=== PATIENT | male | born 1935 | race Caucasian/White ===

== ENCOUNTER 2018-09-17 17:06 | Inpatient (IN) | payer MEDICARE, OTHER ==
[2018-09-17] MEDS ORDERED: Sodium Chloride 0.9% 10 ML Syringe FLUSH PRN (18:15)
[2018-09-17] MEDS ORDERED: Lactated Ringers 1,000 ML IV SCH (18:15)
[2018-09-17] MEDS ORDERED: Ondansetron 4 MG/2 ML SDV IVPUSH ONE (18:18)
[2018-09-17] MEDS ORDERED: fentaNYL 100 MCG/2 ML SDV IVPUSH ONE (18:18)
--- NOTE | 2018-09-17 18:25 | EDM.PDOC ---
ED HPI GENERAL MEDICAL PROBLEM - General Chief Complaint: Abdominal Pain Stated Complaint: ILLNESS Time Seen by Provider: 09/17/18 18:07 Source of Information: Reports: Patient, Family, RN Notes Reviewed History Limitations: Reports: No Limitations - History of Present Illness INITIAL COMMENTS - FREE TEXT/NARRATIVE: 82-year-old gentleman presents emergency department day complaint of right upper quadrant epigastric pain, he has a known history of esophageal cancer he recently spent approximately 2-1/2 months at the [facility] for treatment of his esophageal cancer which included radiation and chemotherapy, he is completed the course of both and he is waiting for his one-month follow- up for determining outcome. He states the pain started at 12:30 this morning sharp and stabbing goes through to his back will come and go about every 2-3 minutes when the pain is most intense he has difficulty breathing. Right Upper Abdominal Pain Score (Numeric/FACES): 10 - Related Data Allergies Allergy/AdvReac Type Severity Reaction Status Date / Time No Known Allergies Allergy Verified 04/06/16 14:42 Home Meds: Home Meds Doxazosin Mesylate [Cardura] 2 mg PO DAILY 10/21/14 [History] Lutein/Min/Vit C/Vit E Acetate [Ocuvite Lutein] 1 cap PO DAILY 10/21/14 [History ] Multivitamin with Minerals [Multiple Vitamin] 1 tab PO DAILY 02/04/16 [History] Pravastatin [Pravachol] 20 mg PO BEDTIME 02/04/16 [History] Enoxaparin [Lovenox] 80 mg SQ Q12HR 09/17/18 [History] Hydrocodone/Acetaminophen [Hydrocodon-Acetaminophen 5-325] 1 tab PO Q6H PRN [History] Isosorbide Mononitrate [Imdur] 30 mg PO DAILY 09/17/18 [History] Metoprolol Tartrate 50 mg PO DAILY 09/17/18 [History] Omeprazole 20 mg PO BID 09/17/18 [History] Ondansetron HCl [Zofran] 4 mg PO Q8H PRN 09/17/18 [History] Prochlorperazine [Compazine] 10 mg PO Q6H PRN 09/17/18 [History] Vancomycin 1 tab PO QID 09/17/18 [History] Past Medical History HEENT History: Reports: Cataract, Macular Degeneration Cardiovascular History: Reports: High Cholesterol, Hypertension Gastrointestinal History: Reports: Other (See Below) Other Gastrointestinal History: ulcers Musculoskeletal History: Reports: Arthritis Neurological History: Reports: Concussion, Head Trauma Hematologic History: Reports: Blood Transfusion(s) Oncologic (Cancer) History: Reports: Esophageal Other Oncologic History: discharged yesterday from [facility] since Jun yesterday - Infectious Disease History Infectious Disease History: Reports: Chicken Pox, Shingles - Past Surgical History HEENT Surgical History: Reports: Cataract Surgery Neurological Surgical History: Reports: Other (See Below) Musculoskeletal Surgical History: Reports: None Social & Family History - Family History Family Medical History: Noncontributory - Tobacco Use Smoking Status *Q: Former Smoker Used Tobacco, but Quit: Yes Month/Year Tobacco Last Used: 40 - Caffeine Use Caffeine Use: Reports: None Other Caffeine Use: 1-2 cups a day - Recreational Drug Use Recreational Drug Use: No ED ROS GENERAL - Review of Systems Review Of Systems: See Below Constitutional: Denies: Fever, Chills HEENT: Reports: No Symptoms Respiratory: Reports: Shortness of Breath Cardiovascular: Reports: Chest Pain GI/Abdominal: Reports: Abdominal Pain, Diarrhea. Denies: Nausea, Vomiting : Reports: No Symptoms Musculoskeletal: Reports: No Symptoms Skin: Reports: No Symptoms Neurological: Reports: No Symptoms ED EXAM, GI/ABD - Physical Exam Exam: See Below Text/Narrative:: General: Male, not in any distress however when the pain calms he has difficulty breathing, alert and oriented x3 HEENT: head is atraumatic normocephalic, eyes pupils equal round reactive to light, sclera clear no conjunctivitis appreciated. Ears tympanic membranes clear and hayward landmarks and light reflex are present bilaterally canals are clear. Nose no septal deviation, nares are clear, no blood present. Mouth mucosa is moist and pink no erythema or exudate noted in soft palate, tongue is midline uvula is midline , dentition is intact. Neck: Supple no thyromegaly no tracheal deviation. Nodes: Cervical nodes subclavicular nodes nontender no palpable lymphadenopathy noted. Lungs: clear to auscultation bilaterally with symmetrical respirations, no adventitious noise appreciated. CV: Regular rate and rhythm S1 and S2 appreciated no murmurs rubs or gallops noted. Abdomen: Soft, tender right upper quadrant, no palpable masses or organomegaly appreciated, no distention no guarding bowel sounds are present,. Neuro: Cranial nerves II through XII intact, GCS 15 Skin: Warm and dry, intact Extremities: No lower extremity edema appreciated, Course - Vital Signs Last Recorded V/S: Last Vital Signs Temp 100.3 F 09/17/18 20:02 Pulse 135 H 09/17/18 22:21 Resp 21 H 09/17/18 22:21 BP 114/52 L 09/17/18 22:21 Pulse Ox 90 L 09/17/18 22:21 - Orders/Labs/Meds Orders: Active Orders 24 hr Category Date Time Status Peripheral IV Care [RC] . DIRECTED Care 09/17/18 18:16 Active CULTURE BLOOD [BC] Urgent Lab 09/17/18 20:25 Received CULTURE BLOOD [BC] Urgent Lab 09/17/18 20:35 Received CULTURE URINE [RM] Urgent Lab 09/17/18 20:21 Received Iopamidol [Isovue-370 (76%)] Med 09/17/18 18:30 Active 100 ml IV . DIRECTED Iopamidol [Isovue-370 (76%)] Med 09/17/18 21:15 Active 100 ml IV . DIRECTED Lactated Ringers [Ringers, Lactated] 1,000 ml Med 09/17/18 18:15 Active IV ASDIRECTED Sodium Chloride 0.9% [Saline Flush] Med 09/17/18 18:15 Active 10 ml FLUSH ASDIRECTED PRN Blood Culture x2 Reflex Set [OM.PC] Urgent Oth 09/17/18 20:07 Ordered Peripheral IV Insertion Adult [OM.PC] Urgent Oth 09/17/18 18:15 Ordered Medication Orders Lactated Ringer's (Ringers, Lactated) 1,000 mls @ 500 mls/hr IV ASDIRECTED LOGAN Last Admin: 09/17/18 19:17 Dose: 500 mls/hr Iopamidol (Isovue-370 (76%)) 100 ml IV . DIRECTED LOGAN Last Admin: 09/17/18 21:57 Dose: 100 ml Iopamidol (Isovue-370 (76%)) 100 ml IV . DIRECTED REPLACED BY [facility] Sodium Chloride (Saline Flush) 10 ml FLUSH ASDIRECTED PRN PRN Reason: Keep Vein Open Last Admin: 09/17/18 20:01 Dose: 10 ml Labs: Laboratory Tests 09/17/18 09/17/18 09/17/18 Range/Units 18:27 18:30 18:30 WBC 6.6 (4.5-11.0) K/uL RBC 3.88 L (4.30-5.90) M/uL Hgb 10.9 L D (12.0-15.0) g/dL Hct 34.2 L (40.0-54.0) % MCV 88 (80-98) fL MCH 28 (27-31) pg MCHC 32 (32-36) % Plt Count 485 H (150-400) K/uL Add Manual Diff Yes Neutrophils % (Manual) 70 H (36-66) % Band Neutrophils % 5 (5-11) % Lymphocytes % (Manual) 12 L (24-44) % Monocytes % (Manual) 13 H (2-6) % D-Dimer, Quantitative 1760 H (0.0-400.0) ng/mL Sodium (140-148) mmol/L Potassium (3.6-5.2) mmol/L Chloride (100-108) mmol/L Carbon Dioxide (21-32) mmol/L Anion Gap (5.0-14.0) mmol/L BUN (7-18) mg/dL Creatinine (0.8-1.3) mg/dL Est Cr Clr Drug Dosing mL/min Estimated GFR (MDRD) (>60) Glucose (74-106) mg/dL Lactic Acid (0.4-2.0) mmol/L Calcium (8.5-10.1) mg/dL Total Bilirubin (0.2-1.0) mg/dL AST (15-37) U/L ALT (12-78) U/L Alkaline Phosphatase (46-116) U/L Troponin I (0.000-0.056) ng/mL Total Protein (6.4-8.2) g/dL Albumin (3.4-5.0) g/dL Globulin (2.3-3.5) g/dL Albumin/Globulin Ratio (1.2-2.2) Lipase (73-393) U/L Urine Color Yellow Urine Appearance Slightly cloudy Urine pH 6.0 (4.5-8.0) Ur Specific [place] 1.015 (1.008-1.030) Urine Protein 30 H (NEGATIVE) mg/dL Urine Glucose (UA) Normal (NEGATIVE) mg/dL Urine Ketones Negative (NEGATIVE) mg/dL Urine Occult Blood Trace (NEGATIVE) Urine Nitrite Negative (NEGAITVE) Urine Bilirubin Negative (NEGATIVE) Urine Urobilinogen Normal (NORMAL) mg/dL Ur Leukocyte Esterase Negative (NEGATIVE) Urine RBC 0-5 (0-5) Urine WBC 0-5 (0-5) Ur Epithelial Cells Moderate Amorphous Sediment Not seen Urine Bacteria Not seen Urine Mucus Many Urine Other 09/17/18 09/17/18 Range/Units 18:30 18:30 WBC (4.5-11.0) K/uL RBC (4.30-5.90) M/uL Hgb (12.0-15.0) g/dL Hct (40.0-54.0) % MCV (80-98) fL MCH (27-31) pg MCHC (32-36) % Plt Count (150-400) K/uL Add Manual Diff Neutrophils % (Manual) (36-66) % Band Neutrophils % (5-11) % Lymphocytes % (Manual) (24-44) % Monocytes % (Manual) (2-6) % D-Dimer, Quantitative (0.0-400.0) ng/mL Sodium 134 L (140-148) mmol/L Potassium 4.6 (3.6-5.2) mmol/L Chloride 97 L (100-108) mmol/L Carbon Dioxide 25 (21-32) mmol/L Anion Gap 16.6 H (5.0-14.0) mmol/L BUN 11 (7-18) mg/dL Creatinine 1.1 (0.8-1.3) mg/dL Est Cr Clr Drug Dosing 53.46 mL/min Estimated GFR (MDRD) > 60 (>60) Glucose 181 H (74-106) mg/dL Lactic Acid 5.4 H (0.4-2.0) mmol/L Calcium 8.1 L (8.5-10.1) mg/dL Total Bilirubin 0.4 (0.2-1.0) mg/dL AST 19 (15-37) U/L ALT 27 (12-78) U/L Alkaline Phosphatase 191 H D (46-116) U/L Troponin I < 0.017 (0.000-0.056) ng/mL Total Protein 6.0 L (6.4-8.2) g/dL Albumin 1.8 L (3.4-5.0) g/dL Globulin 4.2 H (2.3-3.5) g/dL Albumin/Globulin Ratio 0.4 L (1.2-2.2) Lipase 87 (73-393) U/L Urine Color Urine Appearance Urine pH (4.5-8.0) Ur Specific [place] (1.008-1.030) Urine Protein (NEGATIVE) mg/dL Urine Glucose (UA) (NEGATIVE) mg/dL Urine Ketones (NEGATIVE) mg/dL Urine Occult Blood (NEGATIVE) Urine Nitrite (NEGAITVE) Urine Bilirubin (NEGATIVE) Urine Urobilinogen (NORMAL) mg/dL Ur Leukocyte Esterase (NEGATIVE) Urine RBC (0-5) Urine WBC (0-5) Ur Epithelial Cells Amorphous Sediment Urine Bacteria Urine Mucus Urine Other Meds: Medications Generic Name Dose Route Start Last Admin Trade Name Freq PRN Reason Stop Dose Admin Lactated Ringer's 1,000 mls @ 500 mls/hr 09/17/18 18:15 09/17/18 19:17 Ringers, Lactated IV 500 mls/hr ASDIRECTED LOGAN Administration Iopamidol 100 ml 09/17/18 18:30 09/17/18 21:57 Isovue-370 (76%) IV 100 ml . DIRECTED LOGAN Administration Iopamidol 100 ml 09/17/18 21:15 Isovue-370 (76%) IV . DIRECTED LOGAN Sodium Chloride 10 ml 09/17/18 18:15 09/17/18 20:01 Saline Flush FLUSH 10 ml ASDIRECTED PRN Administration Keep Vein Open Discontinued Medications Generic Name Dose Route Start Last Admin Trade Name Freq PRN Reason Stop Dose Admin Ceftriaxone Sodium 1 gm/ 0 gm 09/17/18 22:49 09/17/18 23:29 Lidocaine HCl 2.1 ml IM 09/17/18 22:50 Not Given ONETIME ONE Fentanyl 50 mcg 09/17/18 18:18 09/17/18 19:10 Sublimaze IVPUSH 09/17/18 18:19 50 mcg ONETIME ONE Administration Hydromorphone HCl 1 mg 09/17/18 19:54 09/17/18 19:58 Dilaudid IVPUSH 09/17/18 19:55 1 mg ONETIME ONE Administration Hydromorphone HCl 0.5 mg 09/17/18 22:17 09/17/18 22:25 Dilaudid IVPUSH 09/17/18 22:18 0.5 mg ONETIME ONE Administration Hydromorphone HCl 1 mg 09/17/18 23:25 09/17/18 23:34 Dilaudid IVPUSH 09/17/18 23:26 1 mg ONETIME ONE Administration Sodium Chloride 71 mls @ 3 mls/sec 09/17/18 18:29 09/17/18 20:01 Normal Saline IV 09/17/18 18:30 3 mls/sec ONETIME ONE Administration Sodium Chloride 72 mls @ 3 mls/sec 09/17/18 21:10 09/17/18 21:56 Normal Saline IV 09/17/18 21:11 Not Given ONETIME ONE Lactated Ringer's 1,000 mls @ 999 mls/hr 09/17/18 22:53 09/17/18 23:13 Ringers, Lactated IV 09/17/18 23:53 999 mls/hr BOLUS ONE Administration Ondansetron HCl 4 mg 09/17/18 18:18 09/17/18 19:17 Zofran IVPUSH 09/17/18 18:19 4 mg ONETIME ONE Administration Sodium Chloride 10 ml 09/17/18 21:10 09/17/18 21:56 Saline Flush FLUSH 09/17/18 21:11 10 ml ONETIME ONE Administration Departure - Departure Time of Disposition: 00:36 Disposition: Admitted As Inpatient 66 Condition: Poor Clinical Impression: Hydropneumothorax - Discharge Information Referrals: Wil Raya CRYSTAL SYRUP MAKER [Primary Care Provider] - Forms: ED Department Discharge - My Orders Last 24 Hours: My Active Orders 09/17/18 18:15 Lactated Ringers [Ringers, Lactated] 1,000 ml IV ASDIRECTED Sodium Chloride 0.9% [Saline Flush] 10 ml FLUSH ASDIRECTED PRN Peripheral IV Insertion Adult [OM.PC] Urgent 09/17/18 18:16 Peripheral IV Care [RC] . DIRECTED 09/17/18 18:30 Iopamidol [Isovue-370 (76%)] 100 ml IV . DIRECTED 09/17/18 20:07 Blood Culture x2 Reflex Set [OM.PC] Urgent 09/17/18 20:21 CULTURE URINE [RM] Urgent 09/17/18 20:25 CULTURE BLOOD [BC] Urgent 09/17/18 20:35 CULTURE BLOOD [BC] Urgent 09/17/18 21:15 Iopamidol [Isovue-370 (76%)] 100 ml IV . DIRECTED - Assessment/Plan Last 24 Hours: My Active Orders 09/17/18 18:15 Lactated Ringers [Ringers, Lactated] 1,000 ml IV ASDIRECTED Sodium Chloride 0.9% [Saline Flush] 10 ml FLUSH ASDIRECTED PRN Peripheral IV Insertion Adult [OM.PC] Urgent 09/17/18 18:16 Peripheral IV Care [RC] . DIRECTED 09/17/18 18:30 Iopamidol [Isovue-370 (76%)] 100 ml IV . DIRECTED 09/17/18 20:07 Blood Culture x2 Reflex Set [OM.PC] Urgent 09/17/18 20:21 CULTURE URINE [RM] Urgent 09/17/18 20:25 CULTURE BLOOD [BC] Urgent 09/17/18 20:35 CULTURE BLOOD [BC] Urgent 09/17/18 21:15 Iopamidol [Isovue-370 (76%)] 100 ml IV . DIRECTED Plan: Assessment Acuity = acute Site and laterality = hydropneumothorax right side complicated in a patient with known history of esophageal cancer status post chemotherapy and radiation as well as on anticoagulation therapy of Lovenox for history of DVT and pulmonary embolism with new compression fracture at T12 Etiology = suspicious for the HIDA pneumothorax being blood in the chest cavity possibly related to a recent fall a couple of days ago Manifestations = right upper quadrant pain, hypoxia, hypotension, tachycardia Location of injury = Home Lab values = hemoglobin low at 10.9 consistent normochromic anemia d-dimer elevated 1760 of uncertain etiology sodium low at 134 consistent hyponatremia, lactic acid elevated 5.4 consistent lactic acidosis, troponin was negative albumin low at 1.8 consistent hypoalbuminemia urinalysis unremarkable CT scan chest abdomen and pelvis described the hydropneumothorax on the right side and a new compression fracture T12 remainder of exam is similar to prior exams Plan Call discussed case with [facility] MOD Dr. Link at 23:00 who recommended we did not have to transfer him at this time. I did call discussed case with general surgeon conveyor belt repairer who did present Dr. Fragoso who did present to the emergency department for evaluation of patient for chest tube placed however because of the patient's grave condition how he has progressively gotten worse with tachycardia hypotension and hypoxia while his stay in the ED patient elected to go to comfort care only therefore the chest tube was canceled. Called and discussed the case with Dr. Valladares hospitalist at 24:00 conveyor belt repairer he kindly agreed to evaluate the patient in the hospital , plan for hospice consult Critical care time 15 minutes This note was dictated using [employer] voice recognition software please call with any questions on syntax or grammar.
[2018-09-17] MEDS ORDERED: Sodium Chloride 0.9% 71 ML IV ONE (18:29)
[2018-09-17] MEDS ORDERED: Iopamidol 755 Mg/ML 100 ML Bottle IV SCH ×2 (18:30→21:15)
[2018-09-17] MEDS ORDERED: HYDROmorphone 1 MG/ML Syringe IVPUSH ONE ×2 (19:54→23:25)
--- NOTE | 2018-09-17 20:16 | CRLCT ---
INDICATION: Right upper quadrant pain. History of esophageal cancer. COMPARISON: 11/11/2016 TECHNIQUE: CT examination of the abdomen and pelvis was performed with the uneventful intravenous administration of 100 cc of Isovue-300 while 3 mm thick axial sections were obtained from the lung bases through the pubic symphysis. Oral contrast was administered. Please note that all CT scans at this facility use dose modulation, iterative reconstruction, and/or weight-based dosing when appropriate to reduce radiation dose to as low as reasonably achievable. FINDINGS: In the abdomen, the liver, spleen, pancreas, and adrenals are normal in appearance. The kidneys are normal in appearance. The gallbladder is moderately distended but otherwise normal in appearance. The abdominal aorta is normal in caliber with no sign of dilatation. There is no sign of retroperitoneal mass or adenopathy. During the interval, a metallic stent has been placed in the distal esophagus across the GE junction, measuring 1.8 centimeters (inner diameter) the stent is patent, with fluid filling the stent. The superior end of the stent is not included on today`s study. Again seen is moderate thickening of the wall of the distal esophagus and GE junction consistent with a history of esophageal cancer. There is no sign of mass involving the gastric cardia. The stomach, loops of small bowel, and colon in the abdomen are normal in appearance. In the pelvis, the appendix is nonvisualized, but there is no sign of an inflammatory process in the area of the appendix. There is no change in moderate sigmoid diverticulosis without evidence of diverticulitis. The loops of small bowel and colon in the pelvis are otherwise normal in appearance. The prostate remains prominently enlarged, measuring 6.4 centimeters in diameter. The seminal vesicles are also moderately enlarged but otherwise normal in appearance. The urinary bladder is normal in appearance. There is no sign of pelvic or inguinal mass or adenopathy. There is no change in the small fat containing right direct inguinal hernia. Again seen are postoperative changes in the left inguinal region consistent with hernia repair. There is no sign of recurrence of a hernia. There are new bilateral pleural effusions, moderate on the right and mild on the left. There is new prominent consolidation of the posterior right lower lobe, consistent with atelectasis. There is new moderate consolidation of the posterior left base, also atelectasis. Again seen is mild scoliosis of the lumbar spine convex towards the left. There is a new prominent T12 compression fracture. There is no paraspinous soft tissue swelling to suggest that this is an acute fracture, but acute fracture cannot be excluded. Again seen is mild L1-2 disc degenerative disease. IMPRESSION: CT of the abdomen shows satisfactory placement of a metallic stent in the distal esophagus passing into the gastric cardia. Continued thickening of the wall of the distal esophagus consistent with the history of esophageal cancer. No sign of any free air or free fluid in the visualized inferior mediastinum. New moderate right and mild left pleural effusions with moderate right greater than left basilar consolidation, probably atelectasis. Cannot exclude pneumonia. Moderate distention of the otherwise normal-appearing gallbladder with no sign of acute cholecystitis to explain the patient`s right upper quadrant pain. CT of the pelvis shows no change in moderate sigmoid diverticulosis with no sign of diverticulitis. No change in prominent enlargement of the prostate. No change in small fat containing right inguinal hernia. Changes of surgery in the left inguinal region probably for hernia repair. New prominent T12 compression fracture. No paraspinous soft tissue swelling seen to indicate an acute fracture, but an acute fracture cannot be excluded. Please note that all CT scans at this facility use dose modulation, iterative reconstruction, and/or weight-based dosing when appropriate to reduce radiation dose to as low as reasonably achievable. Dictated by Yogesh Herrera MD @ Sep 17 2018 8:00PM Signed by Dr. Yogesh Herrera @ Sep 17 2018 8:14PM
--- NOTE | 2018-09-17 20:29 | CRLCR ---
Indication: Shortness of breath. Technique: A single AP portable view of the chest was obtained. Comparison: None Findings: Bilateral lower lobe infiltrates are identified, greater on the right than the left. Small right pleural effusion seen. The heart is normal in size. No pneumothorax is identified. Impression: Bilateral lower lobe infiltrates, greater on the right than the left. Dictated by Shalonda Becerra MD @ Sep 17 2018 8:26PM Signed by Dr. Shalonda Becerra @ Sep 17 2018 8:26PM
[2018-09-17] MEDS ORDERED: Sodium Chloride 0.9% 10 ML Syringe FLUSH ONE (21:10)
[2018-09-17] MEDS ORDERED: HYDROmorphone 0.5 MG/0.5 ML Syringe IVPUSH ONE (22:17)
--- NOTE | 2018-09-17 22:45 | CRLCT ---
INDICATION: Tachycardia, esophageal cancer TECHNIQUE: CT chest was acquired with 100 cc Isovue-300 intravenous contrast. COMPARISON: None. FINDINGS: Lungs and pleural: There is underlying centrilobular emphysema with a moderate right pleural effusion which appears partially loculated with a small right pneumothorax. Note is made of some consolidation within the right lower lobe as well some endobronchial debris. There is a trace left pleural effusion with some dependent atelectasis within the left lower lobe. Heart and vasculature: Thoracic aorta is left-sided with atherosclerotic calcification. Trace pericardial fluid. Lymph nodes/mediastinum: There is a soft tissue wall thickening beginning at the midesophageal level above the jose d. There is associated fat stranding within the mediastinum with subcarinal lymph nodes measuring up to 9 millimeters. Below the subcarinal level there is an esophageal stent with diffuse wall thickening adjacent extending into the stomach. Esophagus is thickened at this level with ill-defined is paraesophageal fat stranding. Calcified right hilar and mediastinal lymph nodes. Bilateral thyroid hypodense lesions, largest measuring 13 millimeters. Follow-up outpatient thyroid ultrasound would have improved characterization. Chest wall: No masses. Upper abdomen: Normal. Bones: T12 compression fracture, older appearing. IMPRESSION: 1. Moderate right pleural effusion with small amount of air within the pleural space both intrafluid as well as at the anterior aspect of the hemithorax consistent with a hydropneumothorax. 2. Airspace consolidation within the right lower lobe which could represent passive atelectasis or pneumonia. Note is made of some debris within the right lower lobe bronchus which can be seen in aspiration. 3. Esophageal stent with esophageal wall thickening and adjacent fat stranding within the mediastinum. This is consistent with the given history of esophageal cancer and could represent direct tumor spread or posttreatment changes. 4. Centrilobular emphysema. 5. Trace left pleural effusion with dependent atelectasis. Please note that all CT scans at this facility use dose modulation, iterative reconstruction, and/or weight-based dosing when appropriate to reduce radiation dose to as low as reasonably achievable. Dictated by Waldemar Russ MD @ Sep 17 2018 10:34PM Signed by Dr. Waldemar Russ @ Sep 17 2018 10:43PM
[2018-09-17] MEDS ORDERED: Lactated Ringers 1,000 ML IV ONE (22:53)
[2018-09-17] MEDS: cefTRIAXone 1 GM, Lidocaine 1% 2.1 ML IM ONE ×4 (23:17→23:29)
[2018-09-18] MEDS ORDERED: Sodium Chloride 0.9% 10 ML Syringe FLUSH PRN (00:38)
[2018-09-18] MEDS ORDERED: Prochlorperazine 10 MG Tab PO PRN (00:40)
[2018-09-18] MEDS ORDERED: Ondansetron 4 MG Tab.DIS PO PRN (00:40)
[2018-09-18] MEDS: HYDROmorphone 1 MG/ML Syringe IVPUSH PRN ×4 (01:41→08:38)
[2018-09-18 07:22] VITALS: BP 88/46
[2018-09-18] MEDS ORDERED: Pantoprazole 40 MG Tab.CR PO SCH (07:30)
--- NOTE | 2018-09-18 08:09 | HP ---
HISTORY OF PRESENT ILLNESS: An 82-year-old, comes in today because of severe pain in his chest. He was diagnosed with esophageal cancer this last fall. He just was discharged a day ago from the [facility] for radiation chemotherapy for esophageal cancer, but his pain was so severe that he came into the emergency room, was noted to have hemothorax. ER doctor was going to have a chest tube put in, but he declined invasive treatment and says that he had a good life and plan was for comfort care measures. I was asked to admit the patient for further evaluation and treatment for this pain control, which he did receive, I believe, IV Dilaudid, which does help in the ER. PAST MEDICAL HISTORY: 1. Esophageal cancer. He was in the [facility] in [place] for treatment of this including radiation chemotherapy, which he just completed. He was in the hospital for 2-1/2 months. They were going to see him back in a month to determine successful treatment and determining outcome. 2. He has had history of cataract, macular degeneration. 3. Hyperlipidemia. 4. Essential hypertension. 5. History of ulcers. 6. Osteoarthritis. 7. Deep vein thrombosis with pulmonary embolism. 8. Head trauma in the past. MEDICATIONS: Pravastatin 20 mg at bedtime, Lovenox 80 mg q.12 h., hydrocodone p.r.n., Imdur 30 mg daily, metoprolol 50 mg daily, omeprazole 20 mg b.i.d., Zofran p.r.n., Compazine p.r.n., vancomycin one tablet p.o. q.i.d., doxazosin 2 mg daily, Ocuvite vitamin, multivitamin with minerals. ALLERGIES: NONE. SOCIAL HISTORY: Previous smoker. No current alcohol use. FAMILY HISTORY: Noncontributory. REVIEW OF SYSTEMS: Denies headaches, vision changes, upper respiratory symptoms. He does have the right-sided lower chest pain, right upper quadrant pain, and some shortness of breath. He has had intermittent problems with nausea. No specific bowel problems reported. No urinary problems reported. No swelling in his legs. No skin problems reported. He does have joint pain from arthritis. OBJECTIVE: VITAL SIGNS: Pulse 137, blood pressure 188/84, respirations 20, O2 saturation 91% on 3 L. HEENT: Pharynx had dry mucous membranes. NECK: Supple. No adenopathy, thyromegaly, JVD, carotid bruits. LUNGS: Decreased on the right side. HEART: Regular. ABDOMEN: He did have some discomfort in the right upper quadrant. Otherwise soft, nontender. No distention. No mass or organomegaly palpated. EXTREMITIES: No edema. SKIN: Negative. LABORATORY DATA: White count 6.6, hemoglobin 10.9, platelets 485,000. D-dimer was 1760. Sodium 134, potassium 4.6, chloride 97, BUN is 11, creatinine 1.1, glucose 181. Liver functions, alkaline phosphatase was elevated at 191, AST 19, ALT 27, lipase was 87. Troponin less than 0.017. Urinalysis was unremarkable. CT of abdomen and pelvis; there is metallic stent in the distal esophagus passing into the gastric cardia. Thickening of the wall of the distal esophagus consistent with history of esophageal cancer. Mild left pleural effusions with moderate right greater than left basilar consolidation. T12 compression fracture. CT scan of his chest, moderate right pleural effusion with small amount of air within the pleural space consistent with hydropneumothorax, airspace consolidation, possibly atelectasis or pneumonia in the right lower lobe. ASSESSMENT: Suspected hemopneumothorax, history of esophageal cancer, showed continued esophageal cancer in the esophagus. Dr. Officer did talk to the patient about a chest tube. He wanted no invasive treatment and comfort care. We will continue with IV Dilaudid and oxygen for comfort care measures. We are not sure if the plan is to take him home on hospice or just to keep him here. We will transfer his care to the Hospitalist Service for medical problems as listed above. Freedom Valladares MD /[id number]
[2018-09-18] MEDS ORDERED: Non-Formulary Medication 1 Each (Omeprazole [Omeprazole] 20 MG) PO SCH (09:00)
[2018-09-18] MEDS ORDERED: Isosorbide Mononitrate 30 MG Tab.ER PO SCH (09:00)
[2018-09-18] MEDS ORDERED: Metoprolol Tartrate 50 MG Tab PO SCH (09:00)
[2018-09-18] MEDS ORDERED: LORazepam ORAL Concentrate 1MG/0.5ML U/D PO PRN (09:45)
[2018-09-18] MEDS ORDERED: Morphine 10 MG/0.5 ML Oral Syringe PO PRN ×2 (10:00→10:30)
[2018-09-18] MEDS ORDERED: Atropine Sulfate Ophth 2 ML Drops SL PRN (10:29)
--- NOTE | 2018-09-18 10:30 | PCM.PN ---
- General Info Date of Service: 09/18/18 Functional Status: Denies: Pain Controlled - Review of Systems General: Denies: Fever Pulmonary: Reports: Shortness of Breath Cardiovascular: Reports: Chest Pain - Patient Data Vitals - Most Recent: Last Vital Signs Temp 36.8 C 09/18/18 07:20 Pulse 140 H 09/18/18 07:20 Resp 18 09/18/18 07:20 BP 88/46 L 09/18/18 07:20 Pulse Ox 84 L 09/18/18 07:20 Weight - Most Recent: 74.389 kg I&O - Last 24 Hours: Intake & Output 09/17/18 09/18/18 09/18/18 22:59 06:59 14:59 Output Total 250 Balance -250 Lab Results Last 24 Hours: Laboratory Results - last 24 hr 09/17/18 09/17/18 09/17/18 Range/Units 18:27 18:30 18:30 WBC 6.6 (4.5-11.0) K/uL RBC 3.88 L (4.30-5.90) M/uL Hgb 10.9 L D (12.0-15.0) g/dL Hct 34.2 L (40.0-54.0) % MCV 88 (80-98) fL MCH 28 (27-31) pg MCHC 32 (32-36) % Plt Count 485 H (150-400) K/uL Add Manual Diff Yes Neutrophils % (Manual) 70 H (36-66) % Band Neutrophils % 5 (5-11) % Lymphocytes % (Manual) 12 L (24-44) % Monocytes % (Manual) 13 H (2-6) % D-Dimer, Quantitative 1760 H (0.0-400.0) ng/mL Sodium (140-148) mmol/L Potassium (3.6-5.2) mmol/L Chloride (100-108) mmol/L Carbon Dioxide (21-32) mmol/L Anion Gap (5.0-14.0) mmol/L BUN (7-18) mg/dL Creatinine (0.8-1.3) mg/dL Est Cr Clr Drug Dosing mL/min Estimated GFR (MDRD) (>60) Glucose (74-106) mg/dL Lactic Acid (0.4-2.0) mmol/L Calcium (8.5-10.1) mg/dL Total Bilirubin (0.2-1.0) mg/dL AST (15-37) U/L ALT (12-78) U/L Alkaline Phosphatase (46-116) U/L Troponin I (0.000-0.056) ng/mL Total Protein (6.4-8.2) g/dL Albumin (3.4-5.0) g/dL Globulin (2.3-3.5) g/dL Albumin/Globulin Ratio (1.2-2.2) Lipase (73-393) U/L Urine Color Yellow Urine Appearance Slightly cloudy Urine pH 6.0 (4.5-8.0) Ur Specific [place] 1.015 (1.008-1.030) Urine Protein 30 H (NEGATIVE) mg/dL Urine Glucose (UA) Normal (NEGATIVE) mg/dL Urine Ketones Negative (NEGATIVE) mg/dL Urine Occult Blood Trace (NEGATIVE) Urine Nitrite Negative (NEGAITVE) Urine Bilirubin Negative (NEGATIVE) Urine Urobilinogen Normal (NORMAL) mg/dL Ur Leukocyte Esterase Negative (NEGATIVE) Urine RBC 0-5 (0-5) Urine WBC 0-5 (0-5) Ur Epithelial Cells Moderate Amorphous Sediment Not seen Urine Bacteria Not seen Urine Mucus Many Urine Other 09/17/18 09/17/18 Range/Units 18:30 18:30 WBC (4.5-11.0) K/uL RBC (4.30-5.90) M/uL Hgb (12.0-15.0) g/dL Hct (40.0-54.0) % MCV (80-98) fL MCH (27-31) pg MCHC (32-36) % Plt Count (150-400) K/uL Add Manual Diff Neutrophils % (Manual) (36-66) % Band Neutrophils % (5-11) % Lymphocytes % (Manual) (24-44) % Monocytes % (Manual) (2-6) % D-Dimer, Quantitative (0.0-400.0) ng/mL Sodium 134 L (140-148) mmol/L Potassium 4.6 (3.6-5.2) mmol/L Chloride 97 L (100-108) mmol/L Carbon Dioxide 25 (21-32) mmol/L Anion Gap 16.6 H (5.0-14.0) mmol/L BUN 11 (7-18) mg/dL Creatinine 1.1 (0.8-1.3) mg/dL Est Cr Clr Drug Dosing 53.46 mL/min Estimated GFR (MDRD) > 60 (>60) Glucose 181 H (74-106) mg/dL Lactic Acid 5.4 H (0.4-2.0) mmol/L Calcium 8.1 L (8.5-10.1) mg/dL Total Bilirubin 0.4 (0.2-1.0) mg/dL AST 19 (15-37) U/L ALT 27 (12-78) U/L Alkaline Phosphatase 191 H D (46-116) U/L Troponin I < 0.017 (0.000-0.056) ng/mL Total Protein 6.0 L (6.4-8.2) g/dL Albumin 1.8 L (3.4-5.0) g/dL Globulin 4.2 H (2.3-3.5) g/dL Albumin/Globulin Ratio 0.4 L (1.2-2.2) Lipase 87 (73-393) U/L Urine Color Urine Appearance Urine pH (4.5-8.0) Ur Specific [place] (1.008-1.030) Urine Protein (NEGATIVE) mg/dL Urine Glucose (UA) (NEGATIVE) mg/dL Urine Ketones (NEGATIVE) mg/dL Urine Occult Blood (NEGATIVE) Urine Nitrite (NEGAITVE) Urine Bilirubin (NEGATIVE) Urine Urobilinogen (NORMAL) mg/dL Ur Leukocyte Esterase (NEGATIVE) Urine RBC (0-5) Urine WBC (0-5) Ur Epithelial Cells Amorphous Sediment Urine Bacteria Urine Mucus Urine Other Med Orders - Current: Current Medications Hydromorphone HCl (Dilaudid) 1 mg IVPUSH Q1H PRN PRN Reason: Abdominal Pain Last Admin: 09/18/18 08:38 Dose: 1 mg Lorazepam (Ativan Oral Concentrate 1mg/0.5 Ml U/D) 1 mg PO Q1H PRN PRN Reason: Anxiety Morphine Sulfate (Morphine 10 Mg/0.5 Ml Oral Syringe) 15 mg PO Q1H PRN PRN Reason: AIR HUNGER/PAIN Ondansetron HCl (Zofran Odt) 4 mg PO Q8H PRN PRN Reason: Nausea Prochlorperazine Maleate (Compazine) 10 mg PO Q6H PRN PRN Reason: Nausea Sodium Chloride (Saline Flush) 10 ml FLUSH ASDIRECTED PRN PRN Reason: Keep Vein Open Discontinued Medications Ceftriaxone Sodium 1 gm/ (Lidocaine HCl 2.1 ml) 0 gm IM ONETIME ONE Stop: 09/17/18 22:50 Last Admin: 09/17/18 23:29 Dose: Not Given Fentanyl (Sublimaze) 50 mcg IVPUSH ONETIME ONE Stop: 09/17/18 18:19 Last Admin: 09/17/18 19:10 Dose: 50 mcg Hydromorphone HCl (Dilaudid) 1 mg IVPUSH ONETIME ONE Stop: 09/17/18 19:55 Last Admin: 09/17/18 19:58 Dose: 1 mg Hydromorphone HCl (Dilaudid) 0.5 mg IVPUSH ONETIME ONE Stop: 09/17/18 22:18 Last Admin: 09/17/18 22:25 Dose: 0.5 mg Hydromorphone HCl (Dilaudid) 1 mg IVPUSH ONETIME ONE Stop: 09/17/18 23:26 Last Admin: 09/17/18 23:34 Dose: 1 mg Lactated Ringer's (Ringers, Lactated) 1,000 mls @ 500 mls/hr IV ASDIRECTED [facility] Last Admin: 09/17/18 19:17 Dose: 500 mls/hr Sodium Chloride (Normal Saline) 71 mls @ 3 mls/sec IV ONETIME ONE Stop: 09/17/18 18:30 Last Admin: 09/17/18 20:01 Dose: 3 mls/sec Sodium Chloride (Normal Saline) 72 mls @ 3 mls/sec IV ONETIME ONE Stop: 09/17/18 21:11 Last Admin: 09/17/18 21:56 Dose: Not Given Lactated Ringer's (Ringers, Lactated) 1,000 mls @ 999 mls/hr IV BOLUS ONE Stop: 09/17/18 23:53 Last Admin: 09/17/18 23:13 Dose: 999 mls/hr Iopamidol (Isovue-370 (76%)) 100 ml IV . DIRECTED [facility] Last Admin: 09/17/18 21:57 Dose: 100 ml Iopamidol (Isovue-370 (76%)) 100 ml IV . DIRECTED [facility] Isosorbide Mononitrate (Imdur) 30 mg PO DAILY [facility] Metoprolol Tartrate (Lopressor) 50 mg PO DAILY [facility] Morphine Sulfate (Morphine 10 Mg/0.5 Ml Oral Syringe) 10 mg PO Q1H PRN PRN Reason: AIR HUNGER/PAIN Last Admin: 09/18/18 10:18 Dose: 10 mg Ondansetron HCl (Zofran) 4 mg IVPUSH ONETIME ONE Stop: 09/17/18 18:19 Last Admin: 09/17/18 19:17 Dose: 4 mg Pantoprazole Sodium (Protonix) 40 mg PO ACBREAKFAST [facility] Last Admin: 09/18/18 08:27 Dose: 40 mg Sodium Chloride (Saline Flush) 10 ml FLUSH ASDIRECTED PRN PRN Reason: Keep Vein Open Last Admin: 09/17/18 20:01 Dose: 10 ml Sodium Chloride (Saline Flush) 10 ml FLUSH ONETIME ONE Stop: 09/17/18 21:11 Last Admin: 09/17/18 21:56 Dose: 10 ml - Exam Quality Assessment: Supplemental Oxygen General: Alert, Cooperative, Moderate Distress Lungs: No: Normal Respiratory Effort (increased work of breathing ) Cardiovascular: Tachycardia GI/Abdominal Exam: No Distention Psy/Mental Status: Alert, Anxious - My Orders Last 24 Hours: My Active Orders 09/18/18 09:45 LORazepam [Ativan ORAL Concentrate 1MG/0.5 ML U/D] 1 mg PO Q1H PRN 09/18/18 10:29 Atropine Sulfate [Atropine 1%] 4 ml SL Q4H PRN 09/18/18 10:30 Morphine [Morphine 10 MG/0.5 ML Oral Syringe] 15 mg PO Q1H PRN
--- NOTE | 2018-09-18 11:53 | PCM.DCSUM1 ---
Discharge Summary - Hospital Course Brief History: 82-year-old male with history of esophageal cancer status post recent treatment with radiation therapy and chemotherapy who presented about 24 hours after being discharged from the hospital with severe right-sided chest pain and shortness of breath. He was admitted for comfort care management with severe right-sided hemopneumothorax and advanced esophageal cancer. Diagnosis: Stroke: No - Discharge Data Discharge Date: 09/18/18 Discharge Disposition: 20 Preliminary Cause of *Q: Respiratory Failure (hemopneumothorax, recent radiation tx for esophageal cancer) Condition: - Patient Summary/Data Hospital Course: Félix presented to the emergency room with fairly rapidly progressive right- sided chest pain and shortness of breath. He was tachycardic on arrival. He had an extensive workup and a CT scan revealed a large hemopneumothorax on the right side. This was a fairly extensive effusion complicated by the lung collapse. The patient was tachycardic and significantly hypoxic. A chest tube was considered but given the patient's advanced esophageal cancer that seem to be worsening despite recent treatment he was transitioned to comfort cares. He was thought to be too unstable for safe discharge home so he was admitted to the hospital for comfort cares. He received IV Dilaudid overnight but did not have much in the way of pain relief. The morning after admission he was transitioned to oral morphine which did help him achieve a better level of comfort. He passed peacefully on the morning of September 18 with his and son at this side. No attempts at resuscitation were made per his previously discussed wishes. - Discharge Plan Home Medications: Home Meds Doxazosin Mesylate [Cardura] 2 mg PO DAILY 10/21/14 [History] Lutein/Min/Vit C/Vit E Acetate [Ocuvite Lutein] 1 cap PO DAILY 10/21/14 [History ] Multivitamin with Minerals [Multiple Vitamin] 1 tab PO DAILY 02/04/16 [History] Pravastatin [Pravachol] 20 mg PO BEDTIME 02/04/16 [History] Enoxaparin [Lovenox] 80 mg SQ Q12HR 09/17/18 [History] Hydrocodone/Acetaminophen [Hydrocodon-Acetaminophen 5-325] 1 tab PO Q6H PRN [History] Isosorbide Mononitrate [Imdur] 30 mg PO DAILY 09/17/18 [History] Metoprolol Tartrate 50 mg PO DAILY 09/17/18 [History] Omeprazole 20 mg PO BID 09/17/18 [History] Ondansetron HCl [Zofran] 4 mg PO Q8H PRN 09/17/18 [History] Prochlorperazine [Compazine] 10 mg PO Q6H PRN 09/17/18 [History] Vancomycin 1 tab PO QID 09/17/18 [History] Forms: ED Department Discharge Referrals: Wil Raya NP [Primary Care Provider] - - Discharge Summary/Plan Comment DC Time >30 min.: No - Patient Data Vitals - Most Recent: Last Vital Signs Temp 36.8 C 09/18/18 07:20 Pulse 140 H 09/18/18 07:20 Resp 18 09/18/18 07:20 BP 88/46 L 09/18/18 07:20 Pulse Ox 84 L 09/18/18 07:20 Weight - Most Recent: 74.389 kg I&O - Last 24 hours: Intake & Output 09/17/18 09/18/18 09/18/18 22:59 06:59 14:59 Output Total 250 Balance -250 Lab Results - Last 24 hrs: Laboratory Results - last 24 hr 09/17/18 09/17/18 09/17/18 Range/Units 18:27 18:30 18:30 WBC 6.6 (4.5-11.0) K/uL RBC 3.88 L (4.30-5.90) M/uL Hgb 10.9 L D (12.0-15.0) g/dL Hct 34.2 L (40.0-54.0) % MCV 88 (80-98) fL MCH 28 (27-31) pg MCHC 32 (32-36) % Plt Count 485 H (150-400) K/uL Add Manual Diff Yes Neutrophils % (Manual) 70 H (36-66) % Band Neutrophils % 5 (5-11) % Lymphocytes % (Manual) 12 L (24-44) % Monocytes % (Manual) 13 H (2-6) % D-Dimer, Quantitative 1760 H (0.0-400.0) ng/mL Sodium (140-148) mmol/L Potassium (3.6-5.2) mmol/L Chloride (100-108) mmol/L Carbon Dioxide (21-32) mmol/L Anion Gap (5.0-14.0) mmol/L BUN (7-18) mg/dL Creatinine (0.8-1.3) mg/dL Est Cr Clr Drug Dosing mL/min Estimated GFR (MDRD) (>60) Glucose (74-106) mg/dL Lactic Acid (0.4-2.0) mmol/L Calcium (8.5-10.1) mg/dL Total Bilirubin (0.2-1.0) mg/dL AST (15-37) U/L ALT (12-78) U/L Alkaline Phosphatase (46-116) U/L Troponin I (0.000-0.056) ng/mL Total Protein (6.4-8.2) g/dL Albumin (3.4-5.0) g/dL Globulin (2.3-3.5) g/dL Albumin/Globulin Ratio (1.2-2.2) Lipase (73-393) U/L Urine Color Yellow Urine Appearance Slightly cloudy Urine pH 6.0 (4.5-8.0) Ur Specific [place] 1.015 (1.008-1.030) Urine Protein 30 H (NEGATIVE) mg/dL Urine Glucose (UA) Normal (NEGATIVE) mg/dL Urine Ketones Negative (NEGATIVE) mg/dL Urine Occult Blood Trace (NEGATIVE) Urine Nitrite Negative (NEGAITVE) Urine Bilirubin Negative (NEGATIVE) Urine Urobilinogen Normal (NORMAL) mg/dL Ur Leukocyte Esterase Negative (NEGATIVE) Urine RBC 0-5 (0-5) Urine WBC 0-5 (0-5) Ur Epithelial Cells Moderate Amorphous Sediment Not seen Urine Bacteria Not seen Urine Mucus Many Urine Other 09/17/18 09/17/18 Range/Units 18:30 18:30 WBC (4.5-11.0) K/uL RBC (4.30-5.90) M/uL Hgb (12.0-15.0) g/dL Hct (40.0-54.0) % MCV (80-98) fL MCH (27-31) pg MCHC (32-36) % Plt Count (150-400) K/uL Add Manual Diff Neutrophils % (Manual) (36-66) % Band Neutrophils % (5-11) % Lymphocytes % (Manual) (24-44) % Monocytes % (Manual) (2-6) % D-Dimer, Quantitative (0.0-400.0) ng/mL Sodium 134 L (140-148) mmol/L Potassium 4.6 (3.6-5.2) mmol/L Chloride 97 L (100-108) mmol/L Carbon Dioxide 25 (21-32) mmol/L Anion Gap 16.6 H (5.0-14.0) mmol/L BUN 11 (7-18) mg/dL Creatinine 1.1 (0.8-1.3) mg/dL Est Cr Clr Drug Dosing 53.46 mL/min Estimated GFR (MDRD) > 60 (>60) Glucose 181 H (74-106) mg/dL Lactic Acid 5.4 H (0.4-2.0) mmol/L Calcium 8.1 L (8.5-10.1) mg/dL Total Bilirubin 0.4 (0.2-1.0) mg/dL AST 19 (15-37) U/L ALT 27 (12-78) U/L Alkaline Phosphatase 191 H D (46-116) U/L Troponin I < 0.017 (0.000-0.056) ng/mL Total Protein 6.0 L (6.4-8.2) g/dL Albumin 1.8 L (3.4-5.0) g/dL Globulin 4.2 H (2.3-3.5) g/dL Albumin/Globulin Ratio 0.4 L (1.2-2.2) Lipase 87 (73-393) U/L Urine Color Urine Appearance Urine pH (4.5-8.0) Ur Specific [place] (1.008-1.030) Urine Protein (NEGATIVE) mg/dL Urine Glucose (UA) (NEGATIVE) mg/dL Urine Ketones (NEGATIVE) mg/dL Urine Occult Blood (NEGATIVE) Urine Nitrite (NEGAITVE) Urine Bilirubin (NEGATIVE) Urine Urobilinogen (NORMAL) mg/dL Ur Leukocyte Esterase (NEGATIVE) Urine RBC (0-5) Urine WBC (0-5) Ur Epithelial Cells Amorphous Sediment Urine Bacteria Urine Mucus Urine Other Med Orders - Current: Current Medications Atropine Sulfate (Atropine 1%) 0 ml SL Q4H PRN PRN Reason: secretions Hydromorphone HCl (Dilaudid) 1 mg IVPUSH Q1H PRN PRN Reason: Abdominal Pain Last Admin: 09/18/18 08:38 Dose: 1 mg Lorazepam (Ativan Oral Concentrate 1mg/0.5 Ml U/D) 1 mg PO Q1H PRN PRN Reason: Anxiety Morphine Sulfate (Morphine 10 Mg/0.5 Ml Oral Syringe) 15 mg PO Q1H PRN PRN Reason: AIR HUNGER/PAIN Last Admin: 09/18/18 10:34 Dose: 15 mg Ondansetron HCl (Zofran Odt) 4 mg PO Q8H PRN PRN Reason: Nausea Prochlorperazine Maleate (Compazine) 10 mg PO Q6H PRN PRN Reason: Nausea Sodium Chloride (Saline Flush) 10 ml FLUSH ASDIRECTED PRN PRN Reason: Keep Vein Open Discontinued Medications Ceftriaxone Sodium 1 gm/ (Lidocaine HCl 2.1 ml) 0 gm IM ONETIME ONE Stop: 09/17/18 22:50 Last Admin: 09/17/18 23:29 Dose: Not Given Fentanyl (Sublimaze) 50 mcg IVPUSH ONETIME ONE Stop: 09/17/18 18:19 Last Admin: 09/17/18 19:10 Dose: 50 mcg Hydromorphone HCl (Dilaudid) 1 mg IVPUSH ONETIME ONE Stop: 09/17/18 19:55 Last Admin: 09/17/18 19:58 Dose: 1 mg Hydromorphone HCl (Dilaudid) 0.5 mg IVPUSH ONETIME ONE Stop: 09/17/18 22:18 Last Admin: 09/17/18 22:25 Dose: 0.5 mg Hydromorphone HCl (Dilaudid) 1 mg IVPUSH ONETIME ONE Stop: 09/17/18 23:26 Last Admin: 09/17/18 23:34 Dose: 1 mg Lactated Ringer's (Ringers, Lactated) 1,000 mls @ 500 mls/hr IV ASDIRECTED [facility] Last Admin: 09/17/18 19:17 Dose: 500 mls/hr Sodium Chloride (Normal Saline) 71 mls @ 3 mls/sec IV ONETIME ONE Stop: 09/17/18 18:30 Last Admin: 09/17/18 20:01 Dose: 3 mls/sec Sodium Chloride (Normal Saline) 72 mls @ 3 mls/sec IV ONETIME ONE Stop: 09/17/18 21:11 Last Admin: 09/17/18 21:56 Dose: Not Given Lactated Ringer's (Ringers, Lactated) 1,000 mls @ 999 mls/hr IV BOLUS ONE Stop: 09/17/18 23:53 Last Admin: 09/17/18 23:13 Dose: 999 mls/hr Iopamidol (Isovue-370 (76%)) 100 ml IV . DIRECTED [facility] Last Admin: 09/17/18 21:57 Dose: 100 ml Iopamidol (Isovue-370 (76%)) 100 ml IV . DIRECTED [facility] Isosorbide Mononitrate (Imdur) 30 mg PO DAILY [facility] Metoprolol Tartrate (Lopressor) 50 mg PO DAILY [facility] Morphine Sulfate (Morphine 10 Mg/0.5 Ml Oral Syringe) 10 mg PO Q1H PRN PRN Reason: AIR HUNGER/PAIN Last Admin: 09/18/18 10:18 Dose: 10 mg Ondansetron HCl (Zofran) 4 mg IVPUSH ONETIME ONE Stop: 09/17/18 18:19 Last Admin: 09/17/18 19:17 Dose: 4 mg Pantoprazole Sodium (Protonix) 40 mg PO ACBREAKFAST [facility] Last Admin: 09/18/18 08:27 Dose: 40 mg Sodium Chloride (Saline Flush) 10 ml FLUSH ASDIRECTED PRN PRN Reason: Keep Vein Open Last Admin: 09/17/18 20:01 Dose: 10 ml Sodium Chloride (Saline Flush) 10 ml FLUSH ONETIME ONE Stop: 09/17/18 21:11 Last Admin: 09/17/18 21:56 Dose: 10 ml
== END 2018-09-18 14:19 | disposition expired | DRG 186 ==
LOC: JP.ED 17:06 → JP.MS 09-18 00:38
PROVIDERS: ADMIT Family Medicine; ATTEND Internal Medicine
DX: J94.2 Hemothorax (principal); J96.91 Respiratory failure, unspecified with hypoxia; C15.9 Malignant neoplasm of esophagus, unspecified; M48.54XA Collapsed vertebra, not elsewhere classified, thoracic region, initial encounter for fracture; R09.02 Hypoxemia; Z51.5 Encounter for palliative care; Z66 Do not resuscitate; I10 Essential (primary) hypertension; Z86.718 Personal history of other venous thrombosis and embolism; Z86.711 Personal history of pulmonary embolism; Z87.891 Personal history of nicotine dependence; Z79.01 Long term (current) use of anticoagulants; R10.11 Right upper quadrant pain; R06.02 Shortness of breath; D64.89 Other specified anemias; I95.9 Hypotension, unspecified; R00.0 Tachycardia, unspecified; E78.5 Hyperlipidemia, unspecified; M19.90 Unspecified osteoarthritis, unspecified site; Z92.21 Personal history of antineoplastic chemotherapy; Z92.3 Personal history of irradiation; Z87.11 Personal history of peptic ulcer disease; H35.30 Unspecified macular degeneration; Z87.828 Personal history of other (healed) physical injury and trauma
CPT/HCPCS: 36415; 71045; 71275; 74177; 80053; 81001; 83605; 83690; 84484; 85025; 85379; 87040 ×2; 87086; J1170 ×3; J2405; J3010; J7030; J7120 ×2; Q9967; 96361; 96374; 96375; 96376; 99285-25; A9270-GY; J0696; J2001